=== PATIENT | female | born 1990 | race Caucasian/White ===

== ENCOUNTER 2020-10-16 18:09 | Emergency (ER) | payer OTHER ==
[~2020-10-16] VITALS: Ht 190.5 cm; Wt 86.2 kg
[~2020-10-16 18:09] MED LIST: A-B OTIC EAR DR15 ML OT; BACTRIM DS TAB1 EACH PO; CIPROFLOXACIN500 M1 PO; DOXYCYCLINE 10100 M1 PO; NORCO 5-325 TA1 EACH PO; VICODIN 5-5001 EACH PO; ZOFRAN ODT4 MG PO; ZPAK PO
[2020-10-16] MEDS ORDERED: IBUPROFEN 800800 M1 PO (18:49)
[2020-10-16 19:08] VITALS: BP 132/76
== END 2020-10-16 19:10 | disposition home or self-care (01) ==
LOC: M.ERS 18:09
DX: S66.912A Strain of unspecified muscle, fascia and tendon at wrist and hand level, left hand, initial encounter (principal); Z88.8 Allergy status to other drugs, medicaments and biological substances; Z88.0 Allergy status to penicillin; Z88.5 Allergy status to narcotic agent; X50.0XXA Overexertion from strenuous movement or load, initial encounter; Y93.89 Activity, other specified; Y92.69 Other specified industrial and construction area as the place of occurrence of the external cause; Y99.0 Civilian activity done for income or pay